=== PATIENT | male | born 1965 | race African-American/Black ===

== ENCOUNTER 2021-10-11 00:32 | Emergency (ER) | payer BC ==
[2021-10-11] MEDS ORDERED: Ibuprofen 200 MG TAB ONE (01:56)
[2021-10-11] MEDS ORDERED: AMOXicillin 250 MG CAP ONE (01:56)
== END 2021-10-11 02:00 | disposition home or self-care (01) ==
LOC: BURERS 00:32
DX: H66.91 Otitis media, unspecified, right ear (principal)
CPT/HCPCS: 99282